=== PATIENT | female | born 1995 | race Asian ===

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

== ENCOUNTER 2018-03-06 18:20 | Emergency (ER) | payer OTHER ==
[~2018-03-06] VITALS: Ht 152.4 cm; Wt 49.9 kg
[2018-03-06 18:37] VITALS: BP_SYST 123
--- NOTE | 2018-03-06 18:41 | NUR ---
Patient triaged and placed in waiting room. VSS and patient appears in no acute distress at this time. Accompanied by self, awaiting available bed, and MD notified of need for MSE.
--- NOTE | 2018-03-06 19:03 | NUR ---
Patient to ER bed 04 to gown for evaluation. Side rails up. Report given to KAMERON Anderson
--- NOTE | 2018-03-06 19:05 | NUR ---
Patient AOx4, ambulatory, presents to ER with complaint of anxiety attack. Patient states she experiences hand tremors, muscle aches, environment gets distorted and quiet, severe head pounding, and SOB. Patient noted to be crying during assessment. Patient states school, work, friends, and family attribute to her anxiety. Patient states no psych hx. No other symptoms or complaints.
[2018-03-06] MEDS ORDERED: NACL 0.9% 1,000 ML IV ONE (19:30)
[2018-03-06] MEDS ORDERED: LORazepam 2 MG/ML VIAL (FOR ER USE) IVP ONE (19:30)
--- NOTE | 2018-03-06 19:30 | NUR ---
# 20 gauge angiocath placed to LAC. Use of asceptic technique. Opsite placed over site. Blood return noted. Blood for lab drawn from site. Flushed with 10 cc of normal saline. No evidence of infiltration noted. Patient tolerated well.
[2018-03-06 19:48] LABS: BARBITURATE, URINE NEGATIVE (NEG <=200); BENZODIAZEPINE, URINE NEGATIVE (NEG <=150); CANNABINOID, URINE POSITIVE (NEG <=50); COCAINE, URINE NEGATIVE (NEG <=150); METHAMPHETAMINES SCREEN,URINE NEGATIVE (NEG <=500); OPIATE, URINE NEGATIVE (NEG <=100); PHENCYCLIDINE SCREEN,URINE NEGATIVE (NEG <=25); UR TRICYCLIC ANTIDEPRESSANTS NEGATIVE (NEG <=300); URINE AMPHETAMINE NEGATIVE (NEG <=500); URINE METHADONE NEGATIVE (NEG <=200); URINE OXYCODONE SCREEN NEGATIVE (NEG <=100); URINE PROPOXYPHENE SCREEN NEGATIVE (NEG <=300)
--- NOTE | 2018-03-06 20:00 | NUR ---
No adverse reactions noted after medication administration. Will continue to monitor.
[2018-03-06 20:57] VITALS: BP_SYST 117
--- NOTE | 2018-03-06 20:57 | NUR ---
Patient given written and verbal discharge instructions and verbalizes understanding. ER MD discussed with patient the results and treatment provided. Patient in stable condition. ID arm band removed. IV catheter removed intact and dressing applied, no active bleeding. Rx of Ativan given. Patient educated on pain management and to follow up with PMD. Pain Scale 0/10. Opportunity for questions provided and answered. Medication side effect fact sheet provided.
== END 2018-03-06 20:57 | disposition home or self-care (01) ==
LOC: SED 18:20
DX: F41.9 Anxiety disorder, unspecified (principal); F12.90 Cannabis use, unspecified, uncomplicated
CPT/HCPCS: 80307; 81025; 96374; 99284; J2060; J7030

== ENCOUNTER 2022-12-23 19:49 | Inpatient (IN) | payer BC, OTHER ==
[~2022-12-23] VITALS: Ht 152.4 cm; Wt 59.0 kg
[2022-12-23 20:00] VITALS: BP_SYST 122; RESP 18; TEMP 98.8
[2022-12-23] MEDS ORDERED: NACL 0.9% 1,000 ML IV ONE ×2 (20:45→23:45)
[2022-12-23 20:52] LABS: HEMATOCRIT 38.1 % (36-48); HEMOGLOBIN 12.7 g/dL (12.0-16.0); MEAN CORPUSCULAR HEMOGLOBIN 28 pg (27-31); MEAN CORPUSCULAR HGB CONC 33 % (32-36); MEAN CORPUSCULAR VOLUME 84 fL (79.0-98.0); PLATELET COUNT (AUTO) 288 K/uL (130-430); RED BLOOD CELL COUNT(AUTO) 4.54 MIL/uL (4.2-6.2); RED CELL DISTRIBUTION WIDTH 12.6 % (9.0-15.0)
[2022-12-23 21:11] LABS: BAND % (MANUAL) 8 % (0-6); LYMPHOCYTES % (MANUAL) 5 % (20-46)
[2022-12-23 21:21] LABS: ALBUMIN 3.8 g/dL (3.4-4.8); CALCIUM 8.9 mg/dL (8.4-11.0); CREATININE 0.51 mg/dL (0.55-1.30); TOTAL BILIRUBIN 0.8 mg/dL (0.0-1.0)
[2022-12-23 21:45] LABS: BILIRUBIN,URINE 1+ (NEGATIVE); BLOOD, URINE 2+ (NEGATIVE); CLARITY/URINE CLOUDY (CLEAR); COLOR,URINE YELLOW (YELLOW); GLUCOSE,URINE NEGATIVE (NEGATIVE); KETONES,URINE 3+ (NEGATIVE); LEUKOCYTE ESTERASE ,URINE 2+ (NEGATIVE); NITRITE, URINE NEGATIVE (NEGATIVE); PROTEIN URINE 1+ (NEGATIVE)
[2022-12-23 22:02] LABS: BACTERIA,URINE MODERATE /HPF (None Seen)
[2022-12-23] MEDS ORDERED: KETOROLAC TROMETHAMINE 15 MG VIAL IVP ONE (23:15)
[2022-12-24] VITALS (7 sets, daily range): BP systolic 121–150; PULSE 98–110; RESP 18; TEMP 98–99.6; O2SAT 18–98
[2022-12-24] MEDS ORDERED: DOXYCYCLINE HYCLATE 100 MG in D5W 100 ML IV ONE ×2
[2022-12-24] MEDS ORDERED: cefTRIAXone 1 GM in D5W 50 ML IV ONE ×2
[2022-12-24] MEDS ORDERED: metroNIDAZOLE 500 mg/NS 100 ML IV ONE
[2022-12-24] MEDS ORDERED: cefTRIAXone 1 GM VIAL ONE (00:01)
[2022-12-24] MEDS ORDERED: DOXYCYCLINE HYCLATE 100 MG VIAL IV ONE (00:02)
[2022-12-24] MEDS ORDERED: PIPERACILLIN/TAZO 3.375 GM in NS 50 ML IV SCH (04:15)
[2022-12-24] MEDS ORDERED: NACL 0.9% 1,000 ML IV ONE (06:00)
[2022-12-24] MEDS: PIPERACILLIN/TAZO 3.375 GM in NS 50 ML IV SCH ×4 (06:50→23:15)
[2022-12-24] MEDS ORDERED: LORazepam 2 MG/ML VIAL IVP PRN (09:15)
[2022-12-24] MEDS ORDERED: ACETAMINOPHEN 325 MG TABLET PO PRN ×2 (09:15→09:45)
[2022-12-24] MEDS ORDERED: MORPHINE 2 MG/ML INJ. SYRINGE IVP PRN ×2 (09:15)
[2022-12-24] MEDS ORDERED: ONDANSETRON HCL 4 MG/2 ML VIAL IVP PRN (09:15)
[2022-12-24] MEDS ORDERED: POTASSIUM CHLORIDE 20 MEQ TAB.PRT.SR PO ONE (09:15)
[2022-12-24] MEDS ORDERED: MUPIROCIN 2% TOPICAL OINTMENT 22 GM NS PRN (09:15)
[2022-12-24] MEDS ORDERED: MAGNESIUM SULFATE 50 ML IV PRN (09:15)
[2022-12-24] MEDS ORDERED: POTASSIUM CHLORIDE 20 MEQ TAB.PRT.SR PO PRN (09:15)
[2022-12-24] MEDS ORDERED: DOCUSATE SODIUM 100 MG CAPSULE PO PRN (09:15)
[2022-12-24] MEDS ORDERED: ZOLPIDEM TARTRATE 5 MG TABLET PO PRN (09:15)
[2022-12-24] MEDS ORDERED: NALOXONE HCL 0.4 MG/ML AMP (NARCAN) IVP PRN ×2 (09:15)
[2022-12-24 09:22] LABS: BASOPHILS % (AUTO) 0.2 % (0.0-2.0); EOSINOPHILS # (AUTO) 0.1 K/uL (0.0-0.4); EOSINOPHILS % (AUTO) 0.4 % (0.0-4.0); HEMATOCRIT 35.9 % (36-48); HEMOGLOBIN 11.6 g/dL (12.0-16.0); LYMPHOCYTES # (AUTO) 2.2 K/uL (1.0-5.5); LYMPHOCYTES % (AUTO) 10.5 % (20.5-51.5); MEAN CORPUSCULAR HEMOGLOBIN 28 pg (27-31); MEAN CORPUSCULAR HGB CONC 32 % (32-36); MEAN CORPUSCULAR VOLUME 85 fL (79.0-98.0); MONOCYTES # (AUTO) 1.7 K/uL (0.0-1.0); MONOCYTES % (AUTO) 8.4 % (1.7-9.3); NEUTROPHILS # (AUTO) 16.7 K/uL (1.8-7.7); NEUTROPHILS % (AUTO) 80.5 % (40.0-70.0); PLATELET COUNT (AUTO) 281 K/uL (130-430); RED BLOOD CELL COUNT(AUTO) 4.23 MIL/uL (4.2-6.2); RED CELL DISTRIBUTION WIDTH 12.5 % (9.0-15.0); WHITE BLOOD COUNT (AUTO) 20.8 K/uL (4.8-10.8)
[2022-12-24] MEDS: MORPHINE 2 MG/ML INJ. SYRINGE IVP PRN ×2 (13:30→19:04)
[2022-12-25 00:14] VITALS: BP_SYST 112; PULSE 93; RESP 18; TEMP 97; O2SAT 100
== END 2022-12-25 02:12 | disposition short-term general hospital (02) | DRG 872 ==
LOC: SED 19:49 → SMU 12-24 04:08
PROVIDERS: ADMIT General Practice; ATTEND General Practice
PROC: 0UPD7HZ Removal of Contraceptive Device from Uterus and Cervix, Via Natural or Artificial Opening (ICD-10-PCS; principal; 2022-12-24)
DX: A41.9 Sepsis, unspecified organism (principal); N39.0 Urinary tract infection, site not specified; E87.6 Hypokalemia; N70.93 Salpingitis and oophoritis, unspecified; F12.90 Cannabis use, unspecified, uncomplicated; N73.9 Female pelvic inflammatory disease, unspecified; T83.32XA Displacement of intrauterine contraceptive device, initial encounter; Y84.8 Other medical procedures as the cause of abnormal reaction of the patient, or of later complication, without mention of misadventure at the time of the procedure; Y92.89 Other specified places as the place of occurrence of the external cause; Z83.3 Family history of diabetes mellitus
CPT/HCPCS: 36415; 76376; 76830-TC; 76857; 80053; 81000; 83037; 83605; 83690; 85007; 85025; 85027; 87040; 87086; 87491; 99285; J0696; J1885; J2270; J2543; J3490; J7030; Q9967